=== PATIENT | female | born 1965 | race Caucasian/White ===

== ENCOUNTER 2021-04-26 14:28 | Outpatient (CLI) | payer MEDICARE, MEDICAID, SELFPAY ==
[2021-04-26 16:52] LABS: Free T4 Free Thyroxine 1.48 ng/mL (0.78-2.19)
== END 2021-04-26 14:29 | disposition home or self-care (01) ==
LOC: ANHWCLAB 14:33
PROVIDERS: PCP Nurse Practitioner Family; Referring Provider Internal Medicine Endocrinology, Diabetes & Metabolism; Visit Provider Internal Medicine Endocrinology, Diabetes & Metabolism
DX: E03.9 Hypothyroidism, unspecified (principal); E04.1 Nontoxic single thyroid nodule
CPT/HCPCS: 36415; 84439; 84443

== ENCOUNTER 2021-09-27 14:48 | Outpatient (CLI) | payer MEDICARE, MEDICAID, SELFPAY ==
[2021-09-27 20:06] LABS: Free T4 Free Thyroxine 1.43 ng/mL (0.78-2.19)
== END 2021-09-27 14:49 | disposition home or self-care (01) ==
LOC: ANHWCLAB 14:51
PROVIDERS: PCP Nurse Practitioner Family; Visit Provider Internal Medicine Endocrinology, Diabetes & Metabolism
DX: E03.9 Hypothyroidism, unspecified (principal)
CPT/HCPCS: 36415; 84439; 84443

== ENCOUNTER 2022-04-16 13:51 | Outpatient (CLI) | payer MEDICARE, MEDICAID, SELFPAY ==
[2022-04-16 20:37] LABS: Free T4 Free Thyroxine 1.83 ng/mL (0.78-2.19)
== END 2022-04-16 13:52 | disposition home or self-care (01) ==
LOC: ANHWCLAB 13:54
PROVIDERS: PCP Nurse Practitioner Family; Visit Provider Internal Medicine Endocrinology, Diabetes & Metabolism
DX: E04.1 Nontoxic single thyroid nodule (principal); E03.9 Hypothyroidism, unspecified
CPT/HCPCS: 36415; 84439; 84443

== ENCOUNTER 2024-04-30 11:06 | Outpatient (CLI) | payer MEDICARE, MEDICAID, SELFPAY | END 2024-04-30 11:07 | disposition home or self-care (01) | PROVIDERS: PCP Nurse Practitioner Family; Visit Provider Internal Medicine Endocrinology, Diabetes & Metabolism | DX: E03.9 Hypothyroidism, unspecified (principal) | CPT/HCPCS: 36415; 84439; 84443 ==